=== PATIENT | female | born 1975 | race Caucasian/White ===

== ENCOUNTER → 2020-09-28 | Day surgery (SDC) | payer OTHER ==
[~2020-09-28] VITALS: Ht 160 cm; Wt 113.4 kg
[~2020-09-28] MED LIST: CLARITIN10 MG PO; FLOMAX0.4 MG PO; HCTZ25 MG PO; IBUPROFEN800 M1 PO; KEFLEX250 MG PO; LISINOPRIL10 MG PO; MELOXICAM15 MG PO; METFORMIN HCL500 MG PO; NORCO 5-325 TA1 EACH PO; ONDANSETRON ODT4 MG PO; ZOLOFT50 MG PO
[2020-09-28 07:30] LABS: HCG (URINE) SCREEN NEGATIVE (NEGATIVE)
[2020-09-28 10:39] LABS: BUN/CREAT RATIO (CALC) 28.9 RATIO; CREATININE 0.45 mg/dL (0.51-0.95); POTASSIUM 3.6 mmol/L (3.5-5.1)
== END | disposition home or self-care (01) ==
LOC: FAS 07:07
PROVIDERS: Anesthesiology; Obstetrics & Gynecology
DX: N93.9 Abnormal uterine and vaginal bleeding, unspecified (principal); K66.0 Peritoneal adhesions (postprocedural) (postinfection); G47.30 Sleep apnea, unspecified; I10 Essential (primary) hypertension; I89.0 Lymphedema, not elsewhere classified; E66.01 Morbid (severe) obesity due to excess calories; E11.9 Type 2 diabetes mellitus without complications; F17.210 Nicotine dependence, cigarettes, uncomplicated; F41.8 Other specified anxiety disorders; Z68.41 Body mass index [BMI] 40.0-44.9, adult; Z88.5 Allergy status to narcotic agent; Z88.2 Allergy status to sulfonamides; Z79.84 Long term (current) use of oral hypoglycemic drugs; Z79.899 Other long term (current) drug therapy; Z98.890 Other specified postprocedural states; Z90.49 Acquired absence of other specified parts of digestive tract; Z99.81 Dependence on supplemental oxygen; Z80.3 Family history of malignant neoplasm of breast; Z20.822 Contact with and (suspected) exposure to COVID-19
CPT/HCPCS: 36415; 80048; 84703; 93005; J1100; J1170; J1885; J2250; J2405; J2704; J2710; J3010; J7120